=== PATIENT | female | born 1965 | race Caucasian/White ===

== ENCOUNTER → 2016-05-19 | Outpatient (CLI) | payer BC ==
[~2016-05-19] MED LIST: CHOL100027 PO; SPIR100T PO
--- NOTE | 2016-05-19 16:27 | MAMMOGRAPHY REPORT ---
BILATERAL DIGITAL SCREENING MAMMOGRAM TOMOSYNTHESIS WITH CAD: 05/19/2016 CLINICAL HISTORY: Routine screening. Patient has no complaints. TECHNIQUE: Breast tomosynthesis in addition to standard 2D mammography was performed. Current study was also evaluated with a Computer Aided Detection (CAD) system. COMPARISON: Comparison is made to exams dated: 10/09/2013 mammogram, 04/19/2012 mammogram, and 2010 mammogram - [facility]. BREAST COMPOSITION: The tissue of both breasts is heterogeneously dense, which may obscure small ma sses. FINDINGS: There is a newly visualized round partially circumscribed and partially obscured 7 mm mas s seen within the left lateral breast at approximately 3:00, best seen on the tomosynthesis images, for which ultrasound and possible additional spot compression tomosynthesis views are recommended fo r further evaluation. The remainder of both breasts are stable compared to prior exams, without suspicious masses, calcifi cations, or areas of architectural distortion noted. IMPRESSION: ACR BI-RADS CATEGORY 0: INCOMPLETE EVALUATION: NEED ADDITIONAL IMAGING EVALUATION Left 3:00 breast mass, for which additional imaging evaluation is recommended. The patient will be called to schedule an appointment. Approximately 10% of breast cancers are not detected with mammography. A negative mammographic repor t should not delay biopsy if a clinically suggestive mass is present. Lydia Oakes M.D. ah/:05/19/2016 16:15:05 Box Estimator: Jo-Ann LEACHR, M, [facility] letter sent: Addl Imaging 0 BI-RADS Code: ACR BI-RADS Category 0: Incomplete Evaluation: Need Additional Imaging Evaluation
== END | disposition home or self-care (01) ==
LOC: C.MAMM 12:20
PROVIDERS: ATTEND Obstetrics & Gynecology
DX: Z12.31 Encounter for screening mammogram for malignant neoplasm of breast (principal); N63 Unspecified lump in breast

== ENCOUNTER → 2016-06-02 | Outpatient (CLI) | payer BC ==
--- NOTE | 2016-06-02 12:52 | MAMMOGRAPHY REPORT ---
ULTRASOUND OF LEFT BREAST: 06/02/2016 CLINICAL HISTORY: Callback from screening mammogram for newly visualized mass in the left breast at 3:00 on the recent screening mammogram. COMPARISON: Comparison is made to exams dated: 05/19/2016 mammogram, 10/09/2013 mammogram, 04/19/2012 mammogram, and 07/07/2010 mammogram - [facility]. TECHNIQUE: Real-time targeted ultrasound of the left breast was performed. FINDINGS: Real-time, high resolution targeted ultrasound was performed of the left 3 to 4:00 breast, in the re gion of the circumscribed seen on the recent screening mammogram. In the left breast at 4:00, appro ximately 3 cm from the nipple, there is an oval circumscribed isoechoic mass which measures 6 x 4 x 5 mm. This corresponds with the newly visualized mammographic mass. Although this has benign featu res on the imaging, given that it is newly visualized, it is indeterminate and ultrasound-guided cor e needle biopsy is recommended for further evaluation. This likely represents a fibroadenoma. IMPRESSION: ACR BI-RADS CATEGORY 4A: LOW SUSPICION FOR MALIGNANCY - FOLLOW-UP RECOMMENDED Circumscribed isoechoic 6 mm mass in the left breast at 4:00 on ultrasound, which corresponds with t he newly visualized mammographic mass. The mass is indeterminate and ultrasound-guided core needle biopsy is recommended for further evaluation. This likely represents a fibroadenoma. A phone call was made to the physician's office to confirm faxed results were received. The patient was verbally notified of the results. She tentatively scheduled the biopsy before leaving the depa rtment. Lydia Oakes M.D. ah/:06/02/2016 08:23:37 Corrections Lieutenant: Jada Hall RT(Jason)([place]), [facility] letter sent: Abnormal 4/5 BI-RADS Code: ACR BI-RADS Category 4A: Low Suspicion For Malignancy
== END | disposition home or self-care (01) ==
LOC: C.MAMM 08:03
PROVIDERS: ATTEND Obstetrics & Gynecology
DX: N63 Unspecified lump in breast (principal)

== ENCOUNTER → 2016-06-08 | Outpatient (CLI) | payer BC ==
--- NOTE | 2016-06-08 10:19 | Discharge Instructions ---
Discharge Instructions Procedure Procedure Date: Jun 08, 2016. Reason for visit: Left Mass. Discharge Discharge Date: Jun 08, 2016. Discharge Diagnosis: post left breast ultrasound guided core biopsy Instructions Activity Recommendations: Additional Limitations (see below) Return to School/Work: no limitations Recommended Home Diet: No Limitations Provider Instructions: ACTIVITY RECOMMENDATIONS: * No lifting, pushing, pulling or exercising the affected side for three days. RETURN TO SCHOOL/WORK: * You may return to work/school after the procedure, but do not perform any strenuous activities for 24 to 48 hours. MEDICATIONS: * Tylenol (two 325 mg) every four to six hours if needed for mild pain (if not allergic to Tylenol). DIET: * Resume previous diet. SPECIAL CARE INSTRUCTIONS: * Keep biopsy site dry for 24 hours. May shower after 24 hours, but do not soak (bathe) incision. * May remove Tegaderm (plastic patch) tomorrow AFTER showering. * Leave the steri-strips on for one week. Allow the steri-strips to fall off by themselves. If not off after one week, you may remove them. You may place a Bandaid crosswise over the strips, if desired. * Apply ice 10 minutes on and 10 minutes off as needed. * Wear a bra at bedtime to sleep more comfortably for 2-3 days. * Your referring physician should have the results after approximately 5 to 7 business days. * Call for unusual bleeding, fever, drainage, etc or if you have any questions call [phone] during normal business hours or after hours call Dr Evans, . FOLLOW UP VISIT: Follow-up with Referring Physician as scheduled. Allergies Coded Allergies: Meperidine (Verified Allergy, Intermediate, "CHEST TIGHTNESS" "MUSCLE STIFFNESS" POSSIBLE ALLERGY, 10/31/11) Sulfa Drugs (Verified Allergy, Mild, HIVES, 10/31/11) RXN TO BACTRIM = HIVES Dust Mite Extract (Verified Allergy, Unknown, ?, 10/31/11) Molds and Smuts (Verified Allergy, Unknown, ?, 10/31/11) Oxycodone (Verified Adverse Reaction, Intermediate, NAUSEA/VOMITING, ) Aspirin (Verified Adverse Reaction, Mild, NAUSEA/VOMITING, 03/08/10) Suresh Durham Recommendations: Call your doctor if: * Temperature above 101 degrees * Pain not relieved by pain medicine ordered * There is increased drainage or redness from any incision * You have any unanswered questions or concerns. Your Doctors Instructions noted above were prepared by provider Cynthia Evans. Patient Signature Section: Patient Instructions Signature Page Valeria Ceron Patient (or Guardian) Signature/Date: I have read and understand the instructions given to me by my caregivers. Caregiver/RN/Doctor Signature/Date: The above-named patient and/or guardian has received patient instructions on this date. + Original Patient Signature Page (only) stays with chart. Please make copy for patient.
--- NOTE | 2016-06-08 12:36 | MAMMOGRAPHY REPORT ---
ULTRASOUND GUIDED BIOPSY LEFT BREAST: 06/08/2016 CLINICAL HISTORY: Newly visualized mass in the 4:00 left breast. Patient presents for ultrasound-gu ided core biopsy. COMPARISON: Comparison is made to exams dated: 06/02/2016 ultrasound, 05/19/2016 mammogram, 10/09/2013 mammogram - [facility], 09/12/2006, 07/07/2010 mammogram, and 04/19/[address] [facility]. PATIENT CONSENT: The procedure, risks and benefits were discussed with the patient and informed writ ten consent was obtained. Specific risks to this procedure include: bleeding, infection, puncture of adjacent structure, nontarget biopsy, sampling error, metal allergy and medication reaction. PROCEDURE DESCRIPTION: A time out was performed and the left breast was agreed as the site of biopsy . The skin was prepped and draped in the usual sterile fashion. The solid mass in the 4:[address] was chosen as the target for biopsy. Subcutaneous and intraparenchymal 1% buffered lidocaine with and without epinephrine was administered as local anesthesia. A skin incision was made. Through th e incision, 3 samples were taken with a 14 gauge Achieve biopsy device. A metallic marker was placed at the biopsy site. Hemostasis was achieved after manual compression. The patient tolerated the pro cedure well and there was no immediate complication. The samples were sent to the pathology departm ent in an appropriately labeled container. Postprocedure left CC and ML 2-D digital and tomosynthesis images were obtained. There is a new rib bon-shaped metallic biopsy marker outlining with the mass identified on the 05/19/2016 screening [facility]. No significant postbiopsy hematoma is seen. COMPARISON: Comparison is made to exams dated: 06/02/2016 ultrasound, 05/19/2016 mammogram, 10/09/2013 mammogram - [facility], 09/12/2006, 07/07/2010 mammogram, and 04/19/2012 mammogram - [facility]. An ultrasound guided biopsy using real-time ultrasound was performed for the abnormality located in the left breast at 4 o'clock posterior depth. The skin was prepped in the usual manner. A biopsy n eedle was placed adjacent to the abnormality under ultrasound guidance. Once the needle was documen melissa to be in the correct location, a specimen was obtained using an automated biopsy gun. The speci men was sent to the laboratory for pathological analysis. IMPRESSION: ULTRASOUND GUIDED BIOPSY Status post ultrasound-guided core biopsy of an indeterminate solid mass in the 4:00 left breast, wi th biopsy marker placed at the site. The patient will receive notification of the biopsy results from her referring physician. Cynthia Evans M.D. ay/:06/08/2016 10:31:05 Motion Picture Set Up Worker: Jada Segura, [facility]
--- NOTE | 2016-06-08 12:36 | MAMMOGRAPHY REPORT ---
UNILATERAL LEFT DIGITAL DIAGNOSTIC MAMMOGRAM TOMOSYNTHESIS: 06/08/2016 CLINICAL HISTORY: Status post ultrasound-guided core biopsy of a solid mass in the 4:00 left breast. Please refer to the report from left breast ultrasound guided core biopsy performed at the same time for full detail. IMPRESSION: POST PROCEDURE IMAGING FOR MARKER PLACEMENT Please refer to the report from left breast ultrasound guided core biopsy performed at the same time for full detail. Approximately 10% of breast cancers are not detected with mammography. A negative mammographic repor t should not delay biopsy if a clinically suggestive mass is present. Cynthia Evans M.D. ay/:06/08/2016 10:22:25 Manager Quality Compliance: Jada Segura, [facility] BI-RADS Code: Post Procedure Imaging For Marker Placement
== END | disposition home or self-care (01) ==
LOC: C.MAMM 09:17
PROVIDERS: ATTEND Obstetrics & Gynecology
DX: D24.2 Benign neoplasm of left breast (principal)

== ENCOUNTER → 2016-10-24 | Outpatient (CLI) | payer BC | END | disposition home or self-care (01) | LOC: C.LAB1850 15:50 | PROVIDERS: ATTEND Physician Assistant | DX: R63.5 Abnormal weight gain (principal) ==

== ENCOUNTER → 2016-10-24 | Outpatient (CLI) | payer BC | END | disposition home or self-care (01) | LOC: C.PAPS 17:58 | PROVIDERS: ATTEND Physician Assistant | DX: Z01.419 Encounter for gynecological examination (general) (routine) without abnormal findings (principal) ==

== ENCOUNTER 2017-04-06 14:37 | Emergency (ER) | payer BC ==
[~2017-04-06] VITALS: Ht 157.5 cm; Wt 60.0 kg
[2017-04-06 14:49] VITALS: TEMP 36.3; Ht 157.5 cm; Wt 60.0 kg
--- NOTE | 2017-04-06 16:17 | DIAGNOSTIC IMAGING REPORT ---
RIGHT LOWER EXTREMITY VENOUS DOPPLER CLINICAL HISTORY: Right calf pain. COMPARISON STUDY: No previous studies for comparison. TECHNIQUE: Sonography of the deep venous system of the right lower extremity was performed. Compression and augmentation were evaluated. FINDINGS: The right common femoral, superficial femoral and popliteal veins were compressible. Augmentation was normal. Flow was shown within the deep calf vessels. IMPRESSION: No evidence of deep venous thrombus within the right lower extremity. Electronically signed by: Darshan Nicolas M.D. 04/06/2017 4:16 PM Dictated Date/Time: 04/06/2017 4:15 PM
[2017-04-06 16:53] VITALS: BP 104/66; PULSE 81; O2SAT 96
--- NOTE | 2017-04-06 17:06 | EMERGENCY ROOM VISIT NOTE ---
History First contact with patient: 15:02 Chief Complaint: LEG PAIN,LEG INJURY Stated Complaint: PAIN IN CALF, POST SURGERY - BLOOD CLOT? History of Present Illness The patient is a 51 year old female who presents to the Emergency Room with complaints of right calf pain. The patient reports undergoing a right total hip revision on 04/03/17 at the [facility] in [place]. The patient has a prior history of primary total hip arthroplasty 5 years ago, and underwent a revision surgery that resulted in significant postoperative complications, including femur fracture. The patient was discharged from the hospital 2 days ago. The patient is now starting to exhibit right calf cramping and leg pain since last evening. The patient is currently limited weightbearing using crutches. The patient does have a history of sciatica, but does not feel that this pain is similar to her prior sciatic pain. She is currently taking aspirin 162 mg daily. The patient denies any prior history of DVT. She is a nonsmoker. She rates her discomfort a 5 out of 10. Review of Systems 10 system review was performed and was negative except for pertinent positives and negatives as indicated in history of present illness Past Medical/Surgical History Medical Problems: (1) Bronchitis (2) Pneumonia Surgical Problems: (1) Hip Joint Replacement Status (2) Tubal Ligation Status (3) Tubal Ligation Status Family History FH: cancer FH: diabetes mellitus FH: heart disease FH: hypertension FH: seizures Social History Smoking Status: Never Smoker Alcohol Use: none Drug Use: none Marital Status: Housing Status: lives with family Occupation Status: employed Current/Historical Medications Scheduled Cholecalciferol (Vitamin D 1000 Unit), 1,000 INTER.UNIT PO DAILY Spironolactone (Aldactone), 100 MG PO BID Physical Exam Vital Signs Date Time Temp Pulse Resp B/P (MAP) Pulse Ox O2 Delivery O2 Flow Rate FiO2 04/06/17 16:53 81 18 104/66 96 Room Air 04/06/17 14:49 36.3 83 20 101/68 98 Room Air Physical Exam CONSTITUTIONAL: Healthy and well nourished. Alert and oriented X 3 with positive affect. Patient does not appear in any acute distress. HEENT: Normocephalic, atraumatic. Pupils equal, round and reactive. NECK: Full active range of motion without discomfort. RESPIRATORY: Clear to auscultation bilaterally with no wheezing, crackles, rhonchi or stridor. CARDIOVASCULAR: Regular rate and rhythm with no murmurs, rubs or gallops. MUSCULOSKELETAL: Examination of the right calf shows tenderness to palpation of the gastrocnemius. The tissue is soft. No popliteal masses. Pedal pulses are intact. No tenderness to palpation of the hamstrings or Achilles tendon. Further range of motion of the right hip was deferred because of her prior history and postoperative status. INTEGUMENTARY: No rash or other significant dermatologic conditions noted. NEUROLOGIC: No focal neurologic deficits noted. Right foot and toes are sensory intact. Medical Decision & Procedures ER Provider Diagnostic Interpretation: Venous ultrasound of the right lower extremity is negative for deep vein thrombosis. Radiologist report is as follows: RIGHT LOWER EXTREMITY VENOUS DOPPLER CLINICAL HISTORY: Right calf pain. COMPARISON STUDY: No previous studies for comparison. TECHNIQUE: Sonography of the deep venous system of the right lower extremity was performed. Compression and augmentation were evaluated. FINDINGS: The right common femoral, superficial femoral and popliteal veins were compressible. Augmentation was normal. Flow was shown within the deep calf vessels. IMPRESSION: No evidence of deep venous thrombus within the right lower extremity. ED Course Patient history and physical exam were performed. Nurse's notes were reviewed. Vital signs were reviewed and were also normal. The patient refused any analgesics. Venous ultrasound of the right lower extremity was normal, showing no evidence for deep vein thrombosis. The patient was encouraged to continue with her postoperative instructions per her orthopedic surgeon. She is welcome to return to the emergency department for any progressively worsening pain, swelling, redness of the leg or fever. The patient was happy with plan of care , and voiced understanding of all discharge instructions. Medical Decision Ultrasound does not show any evidence for deep vein thrombosis. Other likely etiologies include postoperative pain as well as acute sciatica. At this point I do not suspect postoperative infection. Medication Reconcilliation Current Medication List: was personally reviewed by pr Blood Pressure Screening Patient's blood pressure: Normal blood pressure Impression Primary Impression: Leg pain, right Additional Impression: Status post hip surgery Departure Information Referrals Ashok Le M.D. (PCP) Patient Instructions [facility] Problem Qualifiers
== END 2017-04-06 17:24 | disposition home or self-care (01) ==
LOC: C.EDB 14:38 → C.EDD 17:24
DX: M79.604 Pain in right leg (principal); Z83.3 Family history of diabetes mellitus; Z82.0 Family history of epilepsy and other diseases of the nervous system; Z82.49 Family history of ischemic heart disease and other diseases of the circulatory system

== ENCOUNTER → 2017-05-21 | Outpatient (CLI) | payer OTHER ==
--- NOTE | 2017-05-22 14:38 | MAMMOGRAPHY REPORT ---
BILATERAL DIGITAL SCREENING MAMMOGRAM TOMOSYNTHESIS WITH CAD: 05/21/2017 CLINICAL HISTORY: Routine screening. TECHNIQUE: Breast tomosynthesis in addition to standard 2D mammography was performed. Current study was also evaluated with a Computer Aided Detection (CAD) system. COMPARISON: Comparison is made to exams dated: 05/19/2016 mammogram, 10/09/2013 mammogram, 04/19/2012 mammogram, 07/07/2010 mammogram - [facility], 09/12/2006, and 06/08/2016 mammogram - [facility]. BREAST COMPOSITION: There are scattered areas of fibroglandular density in both breasts. FINDINGS: There is a stable ribbon-shaped biopsy marker clip in the 3:00 to 4:00 left breast. A stab le loose grouping of microcalcifications in the posterior left breast along the posterior nipple line on the MLO view. No new suspicious mass, architectural distortion or cluster of microcalcifications is seen. IMPRESSION: ACR BI-RADS CATEGORY 1: NEGATIVE There is no mammographic evidence of malignancy. A 1 year screening mammogram is recommended. The pa tient will receive written notification of the results. Approximately 10% of breast cancers are not detected with mammography. A negative mammographic report should not delay biopsy if a clinically suggestive mass is present. Cynthia Evans M.D. ay/:05/21/2017 16:01:40 Workforce Development Specialist: Kishore CASTRO)([place]), [facility] letter sent: Normal 1/2 BI-RADS Code: ACR BI-RADS Category 1: Negative
== END | disposition home or self-care (01) ==
LOC: C.MAMM 12:06
PROVIDERS: ATTEND Obstetrics & Gynecology
DX: Z12.31 Encounter for screening mammogram for malignant neoplasm of breast (principal)

== ENCOUNTER 2022-04-21 19:55 | Observation (INO) ==
[2022-04-21] MEDS ORDERED: ONDANSETRON INJ 2 MG/ML 2 ML VIAL IV STA ×2 (20:15→23:52)
[2022-04-21] MEDS ORDERED: ACETAMINOPHEN 1,000 MG/100 ML VIAL IV STA (20:15)
[2022-04-21] MEDS ORDERED: SODIUM CHLORIDE 0.9% 1000ML 1,000 ML IV ONE (20:15)
[2022-04-21] MEDS ORDERED: MoRPHine SULFATE 2 MG/ML CARP IV STA ×2 (20:15→21:40)
--- NOTE | 2022-04-21 20:19 | Emergency Department Note ---
History of Present Illness General Chief complaint: Back Injury/Pain Stated complaint: SEVERE BACK PAIN,LINGERY BACK ISSUE Time Seen by Provider: 04/21/22 20:02 Source: patient Mode of arrival: ambulatory Limitations: no limitations History of Present Illness Provider complaint: Back pain Maximum Pain Intensity: 8 This is a 56-year-old female presents emergency department due to worsening back pain. Patient states she first began having some back pain several weeks ago after clearing snow off of her car. She states since that time pain has been dull but present most days, often times waxing and waning. She denies any strenuous activity or heavy lifting in the interim. Patient does work with a physical therapist yet as she has been rehabbing from hip surgery last year. Patient also still teaches figure skating. She states today while cleaning at home pain became more severe and despite taking meloxicam and applying a Salonpas pain patch at home pain became so severe that she felt as though she could not move and she began to get nauseated. No prior history of significant back problems. No change in urine or stools. She denies any accompanying paresthesias down the right lower extremity or saddle anesthesia. Patient states pain seems just to the right of midline in her low back, and at times she feels pain spreading around into her flank. No history of pyelonephritis or ureterolithiasis. She denies any fevers or chills. Patient states she did fall yesterday while figure skating but had not noticed increase back pain immediately after that. Home Medications Medication Instructions Recorded Confirmed Type meloxicam 15 mg tablet 15 mg PO DAILY PRN Pain 05/19/21 04/21/22 History ascorbic acid (vitamin C) 500 mg 500 mg PO DAILY 04/21/22 04/21/22 History chewable tablet (Vitamin C) multivitamin with minerals-folic 1 tab PO DAILY 04/21/22 04/21/22 History acid 200 mcg chewable tablet (Adult Multivitamin Gummies) cyclobenzaprine 5 mg tablet 5 mg PO Q8H PRN muscle spasm #14 04/22/22 Rx tabs Allergies Allergy/AdvReac Type Severity Reaction Status Date / Time meperidine Allergy Intermediate "CHEST Verified 04/21/22 21:57 TIGHTNESS" "MUSCLE STIFFNESS" POSSIBLE ALLERGY Sulfa (Sulfonamide Allergy Intermediate HIVES Verified 04/21/22 21:57 Antibiotics) mold Allergy Unknown Unknown Verified 04/21/22 21:57 oxycodone AdvReac Intermediate NAUSEA/VOMI Verified 04/21/22 21:57 TING Dust Mite Extract Allergy Unknown Unknown Uncoded 04/21/22 21:57 Past Med/Surg History Medical History (Updated 04/22/22 @ 02:51 by Faizan Muir MD) Bronchitis Pneumonia Post-menopausal bleeding Postmenopausal HRT (hormone replacement therapy) Surgical History (Updated 04/22/22 @ 02:51 by Faizan Muir MD) H/O section x3 H/O tubal ligation with last c/s S/P bone graft right femur, titanium jared S/P hip arthroscopy right S/P hip replacement right Status post left hip replacement Family History Other Coronary heart disease Diabetes Dyslipidemia Hypertension Osteoporosis Denies family history of Ovarian cancer Breast cancer Colorectal cancer Social History Smoking Status: Never smoker Second Hand Exposure: No; Hx Alcohol Use: No Hx Substance Use: No Preferred Language: Senegalese Communication Ability: Effective 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 Beliefs That Will Affect Care: None Current Living Situation: Spouse Feels Safe at Home: No Is there a partner from a previous relationship who is making you feel unsafe now?: No Assistive Devices: None Review of Systems A total of 10 systems reviewed and were otherwise negative All systems reviewed & are unremarkable except as noted in HPI & below Physical Exam Vital Signs Vital Signs - 24 hr 04/21/22 19:57 04/21/22 22:00 04/22/22 00:00 Temperature 36.3 C L Temperature Source Temporal Artery Scan Pulse Rate 71 Pulse Rate [Finger] 65 63 Pulse Rhythm [Finger] Regular Regular Pulse Strength [Finger] Normal Normal Respiratory Rate 20 20 20 Respiratory Effort / Characteristics Non-Labored Spontaneous Non-Labored Non-Labored Respiratory Depth Normal Normal Normal Respiratory Pattern Regular Regular Blood Pressure 136/70 Blood Pressure [Right Arm] 138/76 132/72 Blood Pressure Mean 92 Blood Pressure Mean [Right Arm] 96 92 Blood Pressure Position [Right Arm] Lying Lying Pulse Oximetry 96 97 100 Oxygen Delivery Method Room Air Room Air Room Air Oxygen Flow Rate Sepsis Recent Fever Within 48 Hours No Sepsis New/Unexplained Change in Mental Status N/A Sepsis Action Taken by Nursing No Action Required 04/22/22 02:00 Temperature Temperature Source Pulse Rate Pulse Rate [Finger] 62 Pulse Rhythm [Finger] Regular Pulse Strength [Finger] Normal Respiratory Rate 15 Respiratory Effort / Characteristics Non-Labored Respiratory Depth Normal Respiratory Pattern Regular Blood Pressure Blood Pressure [Right Arm] 136/72 Blood Pressure Mean Blood Pressure Mean [Right Arm] 93 Blood Pressure Position [Right Arm] Lying Pulse Oximetry 99 Oxygen Delivery Method Nasal Cannula Oxygen Flow Rate 1 Sepsis Recent Fever Within 48 Hours Sepsis New/Unexplained Change in Mental Status Sepsis Action Taken by Nursing GENERAL: alert, uncomfortable appearing, tearful, well nourished, mild distress, non-toxic EYE EXAM: normal conjunctiva, PERRL and EOM's grossly intact LUNGS: Clear to auscultation. Normal chest wall mechanics, no w/r/r HEART: no murmurs, S1 normal and S2 normal ABDOMEN: abdomen soft, non-tender, normo-active bowel sounds, no masses, no rebound or guarding. BACK: Back is symmetrical on inspection and there is no deformity, no midline tenderness, no CVA tenderness. Pain with palpation along right lumbar paraspinal musculature. SKIN: no rashes and no bruising UPPER EXTREMITIES: upper extremities are grossly normal. FROM, nml pulses b/l. LOWER EXTREMITIES: No pitting edema. FROM, nml pulses b/l. No pain with palpation over the hips bilaterally. NEURO EXAM: Normal sensorium, cranial nerves II-XII grossly intact, normal speech, no gross weakness of arms, no gross weakness of legs. Gross sensation intact. Course Course 2240: Pt updated on results. She states she still having significant pain. 2338: Patient states pain improved, down to 5/10. 0040: Pt now with worsening pain, nausea. Feels prior IV meds wore off and oral medications haven't helped. States pain 9/10 again. States with spasm, pain wraps around in the right flank and anterior right hip. Administered Medications Discontinued Medications Ascorbic Acid (Ascorbic Acid 500 Mg Tab) 500 mg PO DAILY ROHIT Stop: 05/22/22 08:59 Last Admin: 04/22/22 10:34 Dose: Not Given Documented By: [id number] Diazepam (Diazepam 5 Mg/Ml Inj 10ml Vial) 2 mg IV NOW STA Stop: 04/21/22 20:16 Last Admin: 04/21/22 21:00 Dose: 2 mg Documented By: SANDEEP Diazepam (Diazepam 5 Mg/Ml Inj 10ml Vial) 2 mg IV NOW STA Stop: 04/21/22 22:42 Last Admin: 04/21/22 22:53 Dose: 2 mg Documented By: SANDEEP Diazepam (Diazepam 2 Mg Tablet) 2 mg PO NOW ONE Stop: 04/21/22 23:42 Last Admin: 04/21/22 23:50 Dose: 2 mg Documented By: SANDEEP Hydromorphone HCl (Hydromorphone Inj 0.5 Mg/0.5 Ml Syr) 0.5 mg IV NOW STA Stop: 04/21/22 22:42 Last Admin: 04/21/22 22:54 Dose: 0.5 mg Documented By: SANDEEP Hydromorphone HCl (Hydromorphone Inj 0.5 Mg/0.5 Ml Syr) 0.5 mg IV NOW STA Stop: 04/22/22 00:42 Last Admin: 04/22/22 01:01 Dose: 0.5 mg Documented By: SANDEEP Acetaminophen (Ofirmev) 1,000 mg in 100 mls @ 400 mls/hr IV NOW STA Stop: 04/21/22 20:29 Last Infusion: 04/21/22 21:16 Dose: 0 mls/hr Documented By: Admin: 04/21/22 20:53 Dose: 400 mls/hr Documented By: SANDEEP Sodium Chloride (Nss 1000ml) 1,000 mls @ 999 mls/hr IV .Q1H1M ONE Stop: 04/21/22 21:15 Last Infusion: 04/21/22 22:00 Dose: 0 mls/hr Documented By: Admin: 04/21/22 20:52 Dose: 999 mls/hr Documented By: SANDEEP Sodium Chloride (Nss 1000ml) 1,000 mls @ 125 mls/hr IV .Q8H ROHIT Stop: 05/22/22 00:44 Last Admin: 04/22/22 01:01 Dose: 125 mls/hr Documented By: SANDEEP Prochlorperazine (Compazine) 1 mls @ 1 mls/min IV ONE ONE Stop: 04/22/22 01:14 Last Admin: 04/22/22 01:20 Dose: 1 mls/min Documented By: SANDEEP Promethazine HCl (Phenergan) 12.5 mg in 50.5 mls @ 202 mls/hr IV NOW STA Stop: 04/22/22 02:32 Last Infusion: 04/22/22 03:50 Dose: 0 mls/hr Documented By: Admin: 04/22/22 02:39 Dose: 202 mls/hr Documented By: JOAO Ioversol (Optiray 350 100ml) 88 ml IV ONCE ONE Stop: 04/22/22 01:56 Last Admin: 04/22/22 01:55 Dose: 88 ml Documented By: MIGUEL Ketorolac Tromethamine (Ketorolac Tromethamine 15 Mg/Ml Vial) 10 mg IV NOW ONE Stop: 04/21/22 21:41 Last Admin: 04/21/22 21:47 Dose: 10 mg Documented By: SANDEEP Lidocaine (Lidocaine 5% 1 Patch) 1 patch TD QAM ROHIT Stop: 05/22/22 08:59 Last Admin: 04/22/22 10:36 Dose: Not Given Documented By: [id number] Morphine Sulfate (Morphine Sulfate 2 Mg/Ml Carp) 2 mg IV NOW STA Stop: 04/21/22 20:16 Last Admin: 04/21/22 20:53 Dose: 2 mg Documented By: SANDEEP Morphine Sulfate (Morphine Sulfate 2 Mg/Ml Carp) 2 mg IV NOW STA Stop: 04/21/22 21:41 Last Admin: 04/21/22 21:47 Dose: 2 mg Documented By: SANDEEP Multivitamins/Minerals (Cerovite Adv Formula Tab) 1 tab PO DAILY ROHIT Stop: 05/22/22 08:59 Last Admin: 04/22/22 10:34 Dose: Not Given Documented By: [id number] Ondansetron HCl (Ondansetron Inj 2 Mg/Ml 2 Ml Vial) 4 mg IV NOW STA Stop: 04/21/22 20:16 Last Admin: 04/21/22 20:53 Dose: 4 mg Documented By: SANDEEP Ondansetron HCl (Ondansetron Inj 2 Mg/Ml 2 Ml Vial) 4 mg IV NOW STA Stop: 04/21/22 23:53 Last Admin: 04/21/22 23:54 Dose: 4 mg Documented By: SANDEEP Ondansetron HCl (Ondansetron Inj 2 Mg/Ml 2 Ml Vial) 4 mg IV Q6H PRN PRN Reason: Nausea Stop: 05/22/22 04:54 Last Admin: 04/22/22 14:43 Dose: 4 mg Documented By: [id number] Oxycodone/Acetaminophen (Oxycodone/Acetaminophen 5mg/325mg Tab) 1 tab PO NOW STA Stop: 04/21/22 23:42 Last Admin: 04/21/22 23:50 Dose: 1 tab Documented By: SANDEEP Tramadol HCl (Tramadol Hcl 50 Mg Tablet) 50 mg PO Q4H PRN PRN Reason: Moderate Pain Stop: 05/22/22 04:54 Last Admin: 04/22/22 14:43 Dose: 50 mg Documented By: [id number] Medical Decision Making Differential Diagnosis Differential diagnoses includes but is not limited to lumbar radiculopathy, muscle strain, facture, cauda equina, mass, and disc herniation. Medical Records Attestation: I reviewed the patient's medical records. Home Medications Current Medication List: was personally reviewed by me Laboratory Data Attestation: I reviewed the patient's lab results. Result diagrams: 04/22/22 00:57 04/22/22 00:57 Lab Results 04/21/22 04/21/22 04/22/22 Range/Units 20:40 20:48 00:46 WBC (4.8-10.8) K/ul RBC (3.93-5.22) M/uL Hgb (12.0-16.0) g/dl POC Hgb 14.6 (12.0-16.0) g/dl Hct (34.1-44.9) % POC Hct 43 (37-47) % MCV (80.0-100.0) fL MCH (25.0-34.0) pg MCHC (32.0-36.0) g/dL RDW Std Deviation (36.4-46.3) fL RDW Coeff of Yissel (11.5-14.5) % Plt Count (130-400) K/uL MPV (9.4-12.3) fL Immature Gran % (Auto) % Neut % (Auto) % Lymph % (Auto) % [place] % (Auto) % Eos % (Auto) % Baso % (Auto) % Neut # (Auto) (1.4-6.5) K/uL Lymph # (Auto) (1.2-3.4) K/uL [place] # (Auto) (0.24-0.82) K/uL Eos # (Auto) (0-0.50) K/uL Baso # (Auto) (0-0.2) K/uL Immature Gran # (Auto) (0.00-0.02) K/uL POC Sodium 138 (135-144) mmol/L Sodium (136-145) mmol/L POC Potassium 3.8 (3.3-5.0) mmol/L Potassium (3.5-5.1) mmol/L POC Chloride 104 (101-112) mmol/L Chloride (98-107) mmol/L Carbon Dioxide (21-32) mmol/L POC Total CO2 26 (24-31) mmol/L Anion Gap (3-11) POC Anion Gap 13.0 L (16-25) mmol/L POC BUN 17 (7-18) mg/dl BUN (6-23) mg/dl Creatinine (0.6-1.2) mg/dl POC Creatinine 0.8 (0.6-1.3) mg/dl Est Cr Clr Drug Dosing Est GFR ( Amer) ml/min Est GFR (Non-Af Amer) ml/min BUN/Creatinine Ratio (10-20) Glucose (70-99(Fasting)) mg/dl POC Glucose (other) 97 (70-99) mg/dl Calcium (8.5-10.1) mg/dl POC Ioniz Calcium Raina 1.25 (1.12-1.32) mmol/l Total Bilirubin (0.2-1.0) mg/dl AST (13-39) U/L ALT (7-52) U/L Alkaline Phosphatase (34-104) U/L Total Protein (6.0-8.3) gm/dl Albumin (3.4-5.0) gm/dl Globulin (2.5-4.0) gm/dl Albumin/Globulin Ratio (0.9-2) Urine Color Yellow Urine Appearance Clear (Clear) Urine pH 6.5 (4.5-7.5) Ur Specific [place] 1.010 (1.000-1.030) Urine Protein Negative (Negative) Urine Glucose (UA) Negative (Negative) Urine Ketones Negative (Negative) Urine Blood Negative (Negative) Urine Nitrite Negative (Negative) Urine Bilirubin Negative (Negative) Urine Urobilinogen Negative (Negative) Ur Leukocyte Esterase 1+ H (Negative) Urine WBC (Auto) 5-10 H (0-5) /hpf Urine RBC (Auto) 0-4 (0-4) /hpf U Hyaline Cast (Auto) 1-5 (0-5) /lpf U Epithel Cells (Auto) >30 H (0-5) /lpf Urine Bacteria (Auto) Negative (Negative) SARS-CoV-2 (PCR) NEGATIVE (Negative) Influenza Type A (PCR) Negative (Neg) Influenza Type B (PCR) Negative (Neg) RSV (RT-PCR) Negative (Neg) 04/22/22 04/22/22 Range/Units 00:57 00:57 WBC 6.06 (4.8-10.8) K/ul RBC 3.79 L (3.93-5.22) M/uL Hgb 11.8 L (12.0-16.0) g/dl POC Hgb (12.0-16.0) g/dl Hct 34.2 (34.1-44.9) % POC Hct (37-47) % MCV 90.2 (80.0-100.0) fL MCH 31.1 (25.0-34.0) pg MCHC 34.5 (32.0-36.0) g/dL RDW Std Deviation 40.6 (36.4-46.3) fL RDW Coeff of Yissel 12.5 (11.5-14.5) % Plt Count 198 (130-400) K/uL MPV 9.5 (9.4-12.3) fL Immature Gran % (Auto) 0.2 % Neut % (Auto) 63.7 % Lymph % (Auto) 22.9 % [place] % (Auto) 10.4 % Eos % (Auto) 2.1 % Baso % (Auto) 0.7 % Neut # (Auto) 3.86 (1.4-6.5) K/uL Lymph # (Auto) 1.39 (1.2-3.4) K/uL [place] # (Auto) 0.63 (0.24-0.82) K/uL Eos # (Auto) 0.13 (0-0.50) K/uL Baso # (Auto) 0.04 (0-0.2) K/uL Immature Gran # (Auto) 0.01 (0.00-0.02) K/uL POC Sodium (135-144) mmol/L Sodium 138 (136-145) mmol/L POC Potassium (3.3-5.0) mmol/L Potassium 4.0 (3.5-5.1) mmol/L POC Chloride (101-112) mmol/L Chloride 108 H (98-107) mmol/L Carbon Dioxide 24 (21-32) mmol/L POC Total CO2 (24-31) mmol/L Anion Gap 6 (3-11) POC Anion Gap (16-25) mmol/L POC BUN (7-18) mg/dl BUN 16 (6-23) mg/dl Creatinine 0.63 (0.6-1.2) mg/dl POC Creatinine (0.6-1.3) mg/dl Est Cr Clr Drug Dosing Not Reportable Est GFR ( Amer) 116.2 ml/min Est GFR (Non-Af Amer) 100.3 ml/min BUN/Creatinine Ratio 25.4 H (10-20) Glucose 109 H (70-99(Fasting)) mg/dl POC Glucose (other) (70-99) mg/dl Calcium 8.4 L (8.5-10.1) mg/dl POC Ioniz Calcium Raina (1.12-1.32) mmol/l Total Bilirubin 0.4 (0.2-1.0) mg/dl AST 29 (13-39) U/L ALT 30 (7-52) U/L Alkaline Phosphatase 67 (34-104) U/L Total Protein 6.6 (6.0-8.3) gm/dl Albumin 3.7 (3.4-5.0) gm/dl Globulin 2.9 (2.5-4.0) gm/dl Albumin/Globulin Ratio 1.3 (0.9-2) Urine Color Urine Appearance (Clear) Urine pH (4.5-7.5) Ur Specific [place] (1.000-1.030) Urine Protein (Negative) Urine Glucose (UA) (Negative) Urine Ketones (Negative) Urine Blood (Negative) Urine Nitrite (Negative) Urine Bilirubin (Negative) Urine Urobilinogen (Negative) Ur Leukocyte Esterase (Negative) Urine WBC (Auto) (0-5) /hpf Urine RBC (Auto) (0-4) /hpf U Hyaline Cast (Auto) (0-5) /lpf U Epithel Cells (Auto) (0-5) /lpf Urine Bacteria (Auto) (Negative) SARS-CoV-2 (PCR) (Negative) Influenza Type A (PCR) (Neg) Influenza Type B (PCR) (Neg) RSV (RT-PCR) (Neg) Imaging Data Radiologist's Impression: Lumbar Spine X-Ray 04/21/22 21:00 XR lumbar spine 2-3V CLINICAL HISTORY: acute back pain TECHNIQUE: 3 views of the lumbar spine were obtained. Comparison: None available at the time of this dictation. FINDINGS: There is no evidence of an acute fracture. Vertebral body heights and disc spaces are well maintained. The alignment is normal. No soft tissue abnormality is seen. Bilateral total hip arthroplasties. IMPRESSION: No acute fracture or subluxation. ACT 112: Negative or not required by law. Electronically signed by: Demetri Mota M.D. 04/22/2022 7:04 AM Abdomen/Pelvis CT 04/22/22 00:40 CT OF THE ABDOMEN AND PELVIS WITH CONTRAST CLINICAL HISTORY: Right flank pain. COMPARISON STUDY: Pelvic ultrasound October 11, 2020. TECHNIQUE: Following IV administration of 88 mL of Optiray, axial images of the abdomen and pelvis were obtained from the lung bases to the proximal femurs. Images were reviewed in the axial, sagittal, and coronal planes. IV contrast was administered without complication. Automated exposure control was utilized for the study. A dose lowering technique was utilized adhering to the principles of ALARA. FINDINGS: Subpleural opacities within the lower lungs atelectasis. No pneumatosis, free air or portal venous gas is present. The liver, spleen, adrenal glands, kidneys and pancreas are unremarkable with the exception of a subcentimeter left renal lesion which likely reflects a cyst. There is no hydronephrosis. There is no biliary or pancreatic ductal dilatation. No urinary calculi are identified although distal ureters are obscured by streak artifact from bilateral hip arthroplasties. Bladder is distended. Caliber and wall thick ness of small and large bowel are normal. The appendix is normal. There is no ascites or lymphadenopathy. No acute fractures within visualized skeletal structures are present. IMPRESSION: 1. No acute process within the abdomen or pelvis. 2. Normal appendix. No bowel obstruction. No bowel wall thickening. 3. No hydronephrosis. No urinary calculi identified. ACT 112: Negative or not required by law. Electronically signed by: Darshan Nicolas M.D. 04/22/2022 8:[address] 04/22/22 00:[address] CLINICAL HISTORY: Back pain. COMPARISON STUDY: Lumbar spine radiographs April 21, 2022. TECHNIQUE: Axial images of the lumbar spine were obtained. Sagittal and coronal reconstructions were viewed. Automated exposure control was utilized for the study. A dose lowering technique was utilized adhering to the principles of ALARA. FINDINGS: Alignment of the lumbar spine is anatomic. Vertebral body heights are maintained. There is no fracture. No osseous lesion is identified. Disc spaces are preserved. Facet joints are intact. Central canal and neural foramen are suboptimally assessed by CT but there is no evidence for significant central canal stenosis. No evidence for severe stenosis neural foraminal stenosis. IMPRESSION: Unremarkable lumbar spine CT. No fractures. ACT 112: Negative or not required by law. Electronically signed by: Darshan Nicolas M.D. 04/22/2022 8:28 AM MDM Narrative An order was placed for continuous cardiac monitoring. The monitor shows a rate of _60__ with _normal sinus__ rhythm. This is a 56-year-old female who presents emergency department due to concern for worsening right low back pain today. She has had some mild dull pain over the last 3 weeks. No prior history of back problems. Initial x-rays reassuring patient given several doses of medication to help with pain and muscle spasm. UA collected and reassuring, [id number] BMP also reassuring. After multiple doses of medications for pain, inflammation, and muscle relaxers we attempted to convert the patient over to oral medication in order to go home. Patient's pain worsened, she vomited, and we returned to IV medication. At this point time I discussed with her the need for additional evaluation and additional inpatient care due to the need for ongoing IV narcotics. CBC and CMP added, patient sent for CT. Case discussed with hospitalist for additional evaluation and treatment. Patient has no contributory family history. Patient was first seen and observation began at 2001 and was necessary in order to evaluate pain and provide multiple doses of IV pain medication. Upon re-evaluation, 5.5 hours of observation revealed that the patient should be admitted. Discharge time at 0145. Impression & Plan Back pain, Sprain of back Discharge Plan Visit Data Chief Complaint: Back Injury/Pain Stated Complaint: SEVERE BACK PAIN,LINGERY BACK ISSUE ED Provider: Sharon Potts Discharge Problem: Back pain, Sprain of back Patient Disposition: Admitted As Inpatient Condition: Good Discharge Instructions Interventions: ED Discharge Assessment Last Done: 04/22/22 04:55
[2022-04-21 21:02] LABS: Appearance Urine Clear (Clear); Bacteria Urine Automated Negative (Negative); Bilirubin Urine Negative (Negative); Blood Urine Negative (Negative); Color Urine Yellow; Epithelial Cell Urine Auto >30 /lpf (0-5); Glucose Urine UA Negative (Negative); Ketones Urine Negative (Negative); Leukocyte Esterase Urine 1+ (Negative); Nitrite Urine Negative (Negative); Protein Urine Negative (Negative); RBC Urine Automated 0-4 /hpf (0-4); Urobilinogen Urine Negative (Negative); pH Urine 6.5 (4.5-7.5)
[2022-04-21 21:16] LABS: iSTAT Creatinine 0.8 mg/dl (0.6-1.3); iSTAT Hemoglobin 14.6 g/dl (12.0-16.0); iSTAT Ionized Calcium 1.25 mmol/l (1.12-1.32); iSTAT Potassium 3.8 mmol/L (3.3-5.0)
[2022-04-21] MEDS ORDERED: KETOROLAC TROMETHAMINE 15 MG/ML VIAL IV ONE (21:40)
[2022-04-21] MEDS ORDERED: HYDROmorphone INJ 0.5 MG/0.5 ML SYR IV STA (22:41)
[2022-04-21] MEDS ORDERED: oxyCODONE/ACETAMINOPHEN 5mg/325mg TAB PO STA (23:41)
[2022-04-21] MEDS ORDERED: diazePAM 2 MG TABLET PO ONE (23:41)
[2022-04-22] MEDS ORDERED: HYDROmorphone INJ 0.5 MG/0.5 ML SYR IV STA (00:41)
[2022-04-22] MEDS ORDERED: SODIUM CHLORIDE 0.9% 1000ML 1,000 ML IV SCH (00:45)
[2022-04-22] MEDS ORDERED: PROCHLORPERAZINE 1 ML IV ONE (01:13)
[2022-04-22 01:36] LABS: Basophils # (auto) 0.04 K/uL (0-0.2); Basophils % (auto) 0.7 %; Eosinophils # (auto) 0.13 K/uL (0-0.50); Eosinophils % (auto) 2.1 %; Hematocrit (blood only) 34.2 % (34.1-44.9); Hemoglobin 11.8 g/dl (12.0-16.0); Immature Granulocytes # (auto) 0.01 K/uL (0.00-0.02); Immature Granulocytes % (auto) 0.2 %; Lymphocytes # (auto) 1.39 K/uL (1.2-3.4); Lymphocytes % (auto) 22.9 %; Mean Corpuscular Hemoglobin 31.1 pg (25.0-34.0); Mean Corpuscular Hgb Conc 34.5 g/dL (32.0-36.0); Mean Corpuscular Volume 90.2 fL (80.0-100.0); Mean Platelet Volume 9.5 fL (9.4-12.3); Monocytes # (auto) 0.63 K/uL (0.24-0.82); Monocytes % (auto) 10.4 %; Neutrophils # (auto) 3.86 K/uL (1.4-6.5); Neutrophils % (auto) 63.7 %; Platelet Count 198 K/uL (130-400); RDW Coefficient of Variation 12.5 % (11.5-14.5); RDW Standard Deviation 40.6 fL (36.4-46.3); Red Blood Count 3.79 M/uL (3.93-5.22); White Blood Count 6.06 K/ul (4.8-10.8)
[2022-04-22] MEDS ORDERED: OPTIRAY 350 100ml IV ONE (01:55)
[2022-04-22 02:01] LABS: Alanine Aminotransferase 30 U/L (7-52); Albumin Globulin Ratio 1.3 (0.9-2); Albumin Level 3.7 gm/dl (3.4-5.0); Alkaline Phosphatase 67 U/L (34-104); Anion Gap 6 (3-11); Aspartate Aminotransferase 29 U/L (13-39); BUN Creatinine Ratio 25.4 (10-20); Bilirubin,Total 0.4 mg/dl (0.2-1.0); Blood Urea Nitrogen 16 mg/dl (6-23); Calcium 8.4 mg/dl (8.5-10.1); Carbon Dioxide 24 mmol/L (21-32); Chloride 108 mmol/L (98-107); Est GFR (African American) 116.2 ml/min; Est GFR (Non-African American) 100.3 ml/min; Globulin 2.9 gm/dl (2.5-4.0); Glucose 109 mg/dl (70-99(Fasting)); Sodium 138 mmol/L (136-145); Total Protein 6.6 gm/dl (6.0-8.3)
[2022-04-22 02:14] LABS: Influenza A virus by PCR Negative (Neg); Influenza B virus by PCR Negative (Neg); RSV by PCR Negative (Neg); SARS CoV2 RNA(COVID-19) Ceph NEGATIVE (Negative)
[2022-04-22] MEDS ORDERED: PROMETHAZINE 12.5 MG/50.5 ML BAG IV STA (02:18)
--- NOTE | 2022-04-22 02:31 | History & Physical Report ---
Date of Service April 22, 2022 Assessment & Plan (1) Intractable low back pain: (2) Sprain of back: (3) Femur fracture: (4) Reactive airway disease: (5) Urge incontinence of urine: (6) S/P bone graft: (7) S/P hip replacement: (8) Status post left hip replacement: Plan Intractable low back pain- X-ray lumbar spine without acute findings CT scan of the lumbar spine was normal CT scan of abdomen and pelvis was normal Patient received multiple dosages of morphine, Dilaudid, diazepam and Percocet from the ED, without significant improvement Patient remitted for pain control Acetaminophen 650 mg p.o. every 6 hours as needed for mild pain or fever Tramadol 50 mg every 4 hours as needed for moderate pain Toradol 15 mg IV every 6 hours as needed for severe pain Lidoderm patch K pad If pain is persistent overnight, will consult orthopedic surgery in the morning History of Present Illness Chief Complaint: The patient presents to the emergency department with complaint of worsening left sided back pain initially began several weeks ago while clearing snow off of her car, and worsened significantly over the past 24 hours while doing the side to side motion while moving around. Primary Care Provider: Ashok Le MD The patient is a 56-year-old female with a past medical history including femur fracture, alopecia, urinary urge incontinence, reactive airway disease, status post left total hip arthroplasty, status post right total hip arthroplasty/status post bone graft right femur with titanium jared and C-sections x3. The patient has been going to physical therapy for on and off for back pain, which had been improving after worsening few weeks ago, then worsened again over the past 24 hours. Allergies Allergy/AdvReac Type Severity Reaction Status Date / Time meperidine Allergy Intermediate "CHEST Verified 04/21/22 21:57 TIGHTNESS" "MUSCLE STIFFNESS" POSSIBLE ALLERGY Sulfa (Sulfonamide Allergy Intermediate HIVES Verified 04/21/22 21:57 Antibiotics) mold Allergy Unknown Unknown Verified 04/21/22 21:57 oxycodone AdvReac Intermediate NAUSEA/VOMI Verified 04/21/22 21:57 TING Dust Mite Extract Allergy Unknown Unknown Uncoded 04/21/22 21:57 Home Medications Medication Instructions Recorded Confirmed Type meloxicam 15 mg tablet 15 mg PO DAILY PRN Pain 05/19/21 04/21/22 History ascorbic acid (vitamin C) 500 mg 500 mg PO DAILY 04/21/22 04/21/22 History chewable tablet (Vitamin C) multivitamin with minerals-folic 1 tab PO DAILY 04/21/22 04/21/22 History acid 200 mcg chewable tablet (Adult Multivitamin Gummies) Past Med/Surg History Medical History (Updated 04/22/22 @ 02:51 by Faizan Muir MD) Bronchitis Pneumonia Post-menopausal bleeding Postmenopausal HRT (hormone replacement therapy) Surgical History (Updated 04/22/22 @ 02:51 by Faizan Muir MD) H/O section x3 H/O tubal ligation with last c/s S/P bone graft right femur, titanium jared S/P hip arthroscopy right S/P hip replacement right Status post left hip replacement Family History Other Coronary heart disease Diabetes Dyslipidemia Hypertension Osteoporosis Denies family history of Ovarian cancer Breast cancer Colorectal cancer Social History Smoking Status: Never smoker Hx Alcohol Use: No Hx Substance Use: No Preferred Language: Bengali Feels Safe at Home: Yes Review of Systems Review of Systems: The patient denies chest pain, palpitations, shortness of breath, dyspnea on exertion, cough, lower extremity swelling, sore throat, fevers, chills, sweats, weight change, fatigue, nausea, vomiting, d iarrhea , constipation, abdominal pain, pelvic pain, blood in urine or stool, dysuria, urinary frequency or urgency, lightheadedness, dizziness, headache, memory loss, loss of consciousness, rash, abnormal bruising or bleeding, imbalance, focal or generalized weakness, numbness or tingling in arms or legs, neck pain, or night sweats. The review of systems is otherwise negative other than for that already noted above, and at least 10 systems have been reviewed. Physical Exam Physical Exam: The patient is awake, alert and oriented 3, well developed and well nourished, normocephalic and atraumatic, lying in bed and in no acute distress. HEENT--PERRL, EOMI, mucous membranes and oropharynx normal. Neck--supple. No JVD. No bruits. Thyroid normal, trachea midline, no adenopathy. Heart--normal S1 and S2. No murmurs, rubs or gallops. Lungs--clear bilaterally, no respiratory distress, no accessory muscle use. Abdomen--normal bowel sounds and soft. Nontender. Nondistended, no hernias or masses, no organomegaly. Extremities--no cyanosis or clubbing. No edema. There are good distal pulses b/l. Dermatologic--normal skin turgor, normal color, no abnormal lymph nodes, no rash. Neurologic--cranial nerves II through XII grossly intact. Rheumatologic--exam limited due to low back pain Psychiatric--normal affect. Results & Data Results & Data ([facility]) Vital Signs (Past 12 Hours) Vital Signs Temp Pulse Pulse Resp BP BP Pulse Ox 04/22/22 02:00 62 15 136/72 99 04/22/22 00:00 63 20 132/72 100 04/21/22 22:00 65 20 138/76 97 04/21/22 19:57 36.3 C L 71 20 136/70 96 O2 Del Method O2 Flow Rate 04/22/22 02:00 Nasal Cannula 1 04/22/22 00:00 Room Air 04/21/22 22:00 Room Air 04/21/22 19:57 Room Air Laboratory Results Laboratory Results WBC 6.06 K/ul (4.8-10.8) 04/22/22 00:57 RBC 3.79 M/uL (3.93-5.22) L 04/22/22 00:57 Hgb 11.8 g/dl (12.0-16.0) L 04/22/22 00:57 POC Hgb 14.6 g/dl (12.0-16.0) 04/21/22 20:48 Hct 34.2 % (34.1-44.9) 04/22/22 00:57 POC Hct 43 % (37-47) 04/21/22 20:48 MCV 90.2 fL (80.0-100.0) 04/22/22 00:57 MCH 31.1 pg (25.0-34.0) 04/22/22 00:57 MCHC 34.5 g/dL (32.0-36.0) 04/22/22 00:57 RDW Std Deviation 40.6 fL (36.4-46.3) 04/22/22 00:57 RDW Coeff of Yissel 12.5 % (11.5-14.5) 04/22/22 00:57 Plt Count 198 K/uL (130-400) 04/22/22 00:57 MPV 9.5 fL (9.4-12.3) 04/22/22 00:57 Immature Gran % (Auto) 0.2 % 04/22/22 00:57 Neut % (Auto) 63.7 % 04/22/22 00:57 Lymph % (Auto) 22.9 % 04/22/22 00:57 Haakon % (Auto) 10.4 % 04/22/22 00:57 Eos % (Auto) 2.1 % 04/22/22 00:57 Baso % (Auto) 0.7 % 04/22/22 00:57 Neut # (Auto) 3.86 K/uL (1.4-6.5) 04/22/22 00:57 Lymph # (Auto) 1.39 K/uL (1.2-3.4) 04/22/22 00:57 Haakon # (Auto) 0.63 K/uL (0.24-0.82) 04/22/22 00:57 Eos # (Auto) 0.13 K/uL (0-0.50) 04/22/22 00:57 Baso # (Auto) 0.04 K/uL (0-0.2) 04/22/22 00:57 Immature Gran # (Auto) 0.01 K/uL (0.00-0.02) 04/22/22 00:57 POC Sodium 138 mmol/L (135-144) 04/21/22 20:48 Sodium 138 mmol/L (136-145) 04/22/22 00:57 POC Potassium 3.8 mmol/L (3.3-5.0) 04/21/22 20:48 Potassium 4.0 mmol/L (3.5-5.1) 04/22/22 00:57 POC Chloride 104 mmol/L (101-112) 04/21/22 20:48 Chloride 108 mmol/L (98-107) H 04/22/22 00:57 Carbon Dioxide 24 mmol/L (21-32) 04/22/22 00:57 POC Total CO2 26 mmol/L (24-31) 04/21/22 20:48 Anion Gap 6 (3-11) 04/22/22 00:57 POC Anion Gap 13.0 mmol/L (16-25) L 04/21/22 20:48 POC BUN 17 mg/dl (7-18) 04/21/22 20:48 BUN 16 mg/dl (6-23) 04/22/22 00:57 Creatinine 0.63 mg/dl (0.6-1.2) 04/22/22 00:57 POC Creatinine 0.8 mg/dl (0.6-1.3) 04/21/22 20:48 Est Cr Clr Drug Dosing Not Reportable 04/22/22 00:57 Est GFR ( Amer) 116.2 ml/min 04/22/22 00:57 Est GFR (Non-Af Amer) 100.3 ml/min 04/22/22 00:57 BUN/Creatinine Ratio 25.4 (10-20) H 04/22/22 00:57 Glucose 109 mg/dl (70-99(Fasting)) H 04/22/22 00:57 POC Glucose (other) 97 mg/dl (70-99) 04/21/22 20:48 Calcium 8.4 mg/dl (8.5-10.1) L 04/22/22 00:57 POC Ioniz Calcium Raina 1.25 mmol/l (1.12-1.32) 04/21/22 20:48 Total Bilirubin 0.4 mg/dl (0.2-1.0) 04/22/22 00:57 AST 29 U/L (13-39) 04/22/22 00:57 ALT 30 U/L (7-52) 04/22/22 00:57 Alkaline Phosphatase 67 U/L (34-104) 04/22/22 00:57 Total Protein 6.6 gm/dl (6.0-8.3) 04/22/22 00:57 Albumin 3.7 gm/dl (3.4-5.0) 04/22/22 00:57 Globulin 2.9 gm/dl (2.5-4.0) 04/22/22 00:57 Albumin/Globulin Ratio 1.3 (0.9-2) 04/22/22 00:57 Urine Color Yellow 04/21/22 20:40 Urine Appearance Clear (Clear) 04/21/22 20:40 Urine pH 6.5 (4.5-7.5) 04/21/22 20:40 Ur Specific [place] 1.010 (1.000-1.030) 04/21/22 20:40 Urine Protein Negative (Negative) 04/21/22 20:40 Urine Glucose (UA) Negative (Negative) 04/21/22 20:40 Urine Ketones Negative (Negative) 04/21/22 20:40 Urine Blood Negative (Negative) 04/21/22 20:40 Urine Nitrite Negative (Negative) 04/21/22 20:40 Urine Bilirubin Negative (Negative) 04/21/22 20:40 Urine Urobilinogen Negative (Negative) 04/21/22 20:40 Ur Leukocyte Esterase 1+ (Negative) H 04/21/22 20:40 Urine WBC (Auto) 5-10 /hpf (0-5) H 04/21/22 20:40 Urine RBC (Auto) 0-4 /hpf (0-4) 04/21/22 20:40 U Hyaline Cast (Auto) 1-5 /lpf (0-5) 04/21/22 20:40 U Epithel Cells (Auto) >30 /lpf (0-5) H 04/21/22 20:40 Urine Bacteria (Auto) Negative (Negative) 04/21/22 20:40 SARS-CoV-2 (PCR) NEGATIVE (Negative) 04/22/22 00:46 Influenza Type A (PCR) Negative (Neg) 04/22/22 00:46 Influenza Type B (PCR) Negative (Neg) 04/22/22 00:46 RSV (RT-PCR) Negative (Neg) 04/22/22 00:46 Code Status & VTE Plan Code Status Full code VTE Prophylaxis Plan VTE Prophylaxis will be ordered: Yes
--- NOTE | 2022-04-22 02:54 | Billing Data ---
Date of Service April 22, 2022 Coding Level of Care Code INT OBSERVATION CARE 70M LVL 3
[2022-04-22] MEDS ORDERED: traMADol HCL 50 MG TABLET PO PRN (04:55)
[2022-04-22] MEDS ORDERED: ONDANSETRON INJ 2 MG/ML 2 ML VIAL IV PRN (04:55)
[2022-04-22] MEDS ORDERED: ACETAMINOPHEN 325 MG TAB PO PRN (04:55)
[2022-04-22] MEDS ORDERED: KETOROLAC TROMETHAMINE 15 MG/ML VIAL IV PRN (04:55)
--- NOTE | 2022-04-22 07:06 | XRay Report ---
XR lumbar spine 2-3V CLINICAL HISTORY: acute back pain TECHNIQUE: 3 views of the lumbar spine were obtained. Comparison: None available at the time of this dictation. FINDINGS: There is no evidence of an acute fracture. Vertebral body heights and disc spaces are well maintained . The alignment is normal. No soft tissue abnormality is seen. Bilateral total hip arthroplasties. IMPRESSION: No acute fracture or subluxation. ACT 112: Negative or not required by law. Electronically signed by: Demetri Mota M.D. 04/22/2022 7:04 AM
--- NOTE | 2022-04-22 08:27 | CT Scan Report ---
CT OF THE ABDOMEN AND PELVIS WITH CONTRAST CLINICAL HISTORY: Right flank pain. COMPARISON STUDY: Pelvic ultrasound October 11, 2020. TECHNIQUE: Following IV administration of 88 mL of Optiray, axial images of the abdomen and pelvis we re obtained from the lung bases to the proximal femurs. Images were reviewed in the axial, sagittal, and coronal planes. IV contrast was administered without complication. Automated exposure control wa s utilized for the study. A dose lowering technique was utilized adhering to the principles of ALARA . FINDINGS: Subpleural opacities within the lower lungs atelectasis. No pneumatosis, free air or portal venous gas is present. The liver, spleen, adrenal glands, kidneys and pancreas are unremarkable with the exception of a subcentimeter left renal lesion which likely reflects a cyst. There is no hydrone phrosis. There is no biliary or pancreatic ductal dilatation. No urinary calculi are identified altho ugh distal ureters are obscured by streak artifact from bilateral hip arthroplasties. Bladder is dist ended. Caliber and wall thickness of small and large bowel are normal. The appendix is normal. There is no ascites or lymphadenopathy. No acute fractures within visualized skeletal structures are presen t. IMPRESSION: 1. No acute process within the abdomen or pelvis. 2. Normal appendix. No bowel obstruction. No bowel wall thickening. 3. No hydronephrosis. No urinary calculi identified. ACT 112: Negative or not required by law. Electronically signed by: Darshan Nicolas M.D. 04/22/2022 8:25 AM
--- NOTE | 2022-04-22 08:29 | CT Scan Report ---
LUMBAR SPINE CT CLINICAL HISTORY: Back pain. COMPARISON STUDY: Lumbar spine radiographs April 21, 2022. TECHNIQUE: Axial images of the lumbar spine were obtained. Sagittal and coronal reconstructions were viewed. Automated exposure control was utilized for the study. A dose lowering technique was utilize d adhering to the principles of ALARA. FINDINGS: Alignment of the lumbar spine is anatomic. Vertebral body heights are maintained. There is no fracture. No osseous lesion is identified. Disc spaces are preserved. Facet joints are intact. Jorge tral canal and neural foramen are suboptimally assessed by CT but there is no evidence for significan t central canal stenosis. No evidence for severe stenosis neural foraminal stenosis. IMPRESSION: Unremarkable lumbar spine CT. No fractures. ACT 112: Negative or not required by law. Electronically signed by: Darshan Nicolas M.D. 04/22/2022 8:28 AM
[2022-04-22] MEDS ORDERED: BACLOFEN 10 MG TAB PO PRN (08:57)
[2022-04-22] MEDS ORDERED: ASCORBIC ACID 500 MG TAB PO SCH (09:00)
[2022-04-22] MEDS ORDERED: CEROVITE ADV FORMULA TAB PO SCH (09:00)
[2022-04-22] MEDS ORDERED: LIDOCAINE 5% 1 PATCH TD SCH (09:00)
--- NOTE | 2022-04-22 12:10 | Hospitalist Progress Note ---
Date of Service April 22, 2022 Assessment & Plan Admission and Anticipated Discharge Date Admission Date: April 22, 2022 Subjective eval this morning, resting in bed, reporting NO pain currently, thirsty for drink-- provided low back pain on admit, but reports not spinal tenderness, but rather paraspinal tenderness. Previously was clearing snow off car and worsened over past 24 hours when twisting side to side while moving around. Issues w/ n/v w/ oxycodone but given something last night which worked -- meds including valium, dilaudid and phenergan (zofran was admit, but had worsening n/v after oxycodone and phenergan used). She reports she wants to go home today on oral medications and does not want to wake up here [place] morning. Results & Data Results & Data ([facility]) Vital Signs (Past 12 Hours) Vital Signs Temp Pulse Resp BP Pulse Ox O2 Del Method O2 Flow Rate 04/22/22 09:42 36.5 C 60 18 86/54 L 95 Room Air 04/22/22 08:00 Nasal Cannula 04/22/22 06:01 56 L 14 95/57 L 100 Room Air 04/22/22 04:00 65 16 100/57 L 100 04/22/22 02:00 62 15 136/72 99 Nasal Cannula 1 PG Care Time/CCT Total # of Minutes Spent Total Time Spent with Patient: Total time spent is greater than 50% in coordination of care (as documented) at patient's floor/unit and/or counseling patient: Coding
--- NOTE | 2022-04-22 14:00 | Discharge Summary ---
Date of Service April 22, 2022 Admission HPI Per Admitting Provider The patient is a 56-year-old female with a past medical history including femur fracture, alopecia, urinary urge incontinence, reactive airway disease, status post left total hip arthroplasty, status post right total hip arthroplasty/status post bone graft right femur with titanium jared and C-sections x3. The patient has been going to physical therapy for on and off for back pain, which had been improving after worsening few weeks ago, then worsened again over the past 24 hours. Admission Exam Per Admitting Provider The patient is awake, alert and oriented 3, well developed and well nourished, normocephalic and atraumatic, lying in bed and in no acute distress. HEENT--PERRL, EOMI, mucous membranes and oropharynx normal. Neck--supple. No JVD. No bruits. Thyroid normal, trachea midline, no adenopathy. Heart--normal S1 and S2. No murmurs, rubs or gallops. Lungs--clear bilaterally, no respiratory distress, no accessory muscle use. Abdomen--normal bowel sounds and soft. Nontender. Nondistended, no hernias or masses, no organomegaly. Extremities--no cyanosis or clubbing. No edema. There are good distal pulses b/l. Dermatologic--normal skin turgor, normal color, no abnormal lymph nodes, no rash. Neurologic--cranial nerves II through XII grossly intact. Rheumatologic--exam limited due to low back pain Psychiatric--normal affect. Principal Diagnosis Intractable Back Pain, Muscle Spasm Discharge Exam General: WD/WN female sitting in bed, resting, NAD HEENT: head normocephalic, atraumatic, mm slightly dry, trachea midline without deviation Resp: CTAB, no w/c/r, on room air CV: RRR, no m/r/g, no pitting edema/calf tenderness GI: +BS, soft/NT : no martinez MSK/Neuro: moves all extremities, no focal deficit, paraspinal muscle tenderness on the right, reproducible Skin: warm, dry Discharge Data Allergies Allergy/AdvReac Type Severity Reaction Status Date / Time meperidine Allergy Intermediate "CHEST Verified 04/21/22 21:57 TIGHTNESS" "MUSCLE STIFFNESS" POSSIBLE ALLERGY Sulfa (Sulfonamide Allergy Intermediate HIVES Verified 04/21/22 21:57 Antibiotics) mold Allergy Unknown Unknown Verified 04/21/22 21:57 oxycodone AdvReac Intermediate NAUSEA/VOMI Verified 04/21/22 21:57 TING Dust Mite Extract Allergy Unknown Unknown Uncoded 04/21/22 21:57 Consultations 04/22/22 01:12 ED Decision to Admit Stat 04/22/22 08:55 Consult Pain Management Routine Ordered Studies Lumbar Spine X-Ray 04/21/22 21:00 XR lumbar spine 2-3V CLINICAL HISTORY: acute back pain TECHNIQUE: 3 views of the lumbar spine were obtained. Comparison: None available at the time of this dictation. FINDINGS: There is no evidence of an acute fracture. Vertebral body heights and disc spaces are well maintained. The alignment is normal. No soft tissue abnormality is seen. Bilateral total hip arthroplasties. IMPRESSION: No acute fracture or subluxation. ACT 112: Negative or not required by law. Electronically signed by: Demetri Mota M.D. 04/22/2022 7:04 AM Abdomen/Pelvis CT 04/22/22 00:40 CT OF THE ABDOMEN AND PELVIS WITH CONTRAST CLINICAL HISTORY: Right flank pain. COMPARISON STUDY: Pelvic ultrasound October 11, 2020. TECHNIQUE: Following IV administration of 88 mL of Optiray, axial images of the abdomen and pelvis were obtained from the lung bases to the proximal femurs. Images were reviewed in the axial, sagittal, and coronal planes. IV contrast was administered without complication. Automated exposure control was utilized for the study. A dose lowering technique was utilized adhering to the principles of ALARA. FINDINGS: Subpleural opacities within the lower lungs atelectasis. No pneumatosis, free air or portal venous gas is present. The liver, spleen, adrenal glands, kidneys and pancreas are unremarkable with the exception of a subcentimeter left renal lesion which likely reflects a cyst. There is no hydronephrosis. There is no biliary or pancreatic ductal dilatation. No urinary calculi are identified although distal ureters are obscured by streak artifact from bilateral hip arthroplasties. Bladder is distended. Caliber and wall thickness of small and large bowel are normal. The appendix is normal. There is no ascites or lymphadenopathy. No acute fractures within visualized skeletal structures are present. IMPRESSION: 1. No acute process within the abdomen or pelvis. 2. Normal appendix. No bowel obstruction. No bowel wall thickening. 3. No hydronephrosis. No urinary calculi identified. ACT 112: Negative or not required by law. Electronically signed by: Darshan Nicolas M.D. 04/22/2022 8:[address] 04/22/22 00:[address] CLINICAL HISTORY: Back pain. COMPARISON STUDY: Lumbar spine radiographs April 21, 2022. TECHNIQUE: Axial images of the lumbar spine were obtained. Sagittal and coronal reconstructions were viewed. Automated exposure control was utilized for the study. A dose lowering technique was utilized adhering to the principles of ALARA. FINDINGS: Alignment of the lumbar spine is anatomic. Vertebral body heights are maintained. There is no fracture. No osseous lesion is identified. Disc spaces are preserved. Facet joints are intact. Central canal and neural foramen are suboptimally assessed by CT but there is no evidence for significant central c anal stenosis. No evidence for severe stenosis neural foraminal stenosis. IMPRESSION: Unremarkable lumbar spine CT. No fractures. ACT 112: Negative or not required by law. Electronically signed by: Darshan Nicolas M.D. 04/22/2022 8:28 AM Hospital Course (1) Intractable low back pain: Intractable low back pain, ongoing but occurred initially when clearing snow from her car, suspect MSK/sprain/strain --> Xray lumbar spine w/o acute finding CT lumbar spine/AP without abnormality Pain control ordered -- IV opiates/valium/phenergan, with ultimate control achieved Was going to monitor patient/see how she did but reported much improved and felt well enough to go home. She has been working with outpatient therapy since her hip surgery and can resume per discussion w/ PT prior to discharge Tenderness/tense paraspinal muscles on the right -- continue heat/ice, and rx for Flexeril at d/c (2) Sprain of back: (3) Femur fracture: (4) Reactive airway disease: (5) Urge incontinence of urine: (6) S/P bone graft: (7) S/P hip replacement: (8) Status post left hip replacement: Total Time Total Time Spent Total Time Spent (In Minutes): 45 Discharge Plan Discharge Items Patient Disposition: Home - Self-Care Reason For Visit: INTRACTABLE BACK PAIN Discharge Diagnosis: Intractable Back Pain, Muscle Spasm Condition on Discharge: Good Goals: You have been hospitalized for an acute medical problem. During your stay at [facility], we have made an effort to correct the problem that brought you to the hospital while keeping you as comfortable as possible. Medications were used to bring your condition under control and your discharge instructions will include directions for any medications you should take after leaving the hospital. Please make sure you see your Primary Care Provider as part of your follow up plan. Activity: As commented below Non-emergency contact: Primary Care Provider Call non-emergency contact if: you have any medication questions, your symptoms worsen and your pain is not controlled Follow-up/Referrals: Ashok eL MD [Primary Care Provider] - Diet: Regular Addtl Attending Provider Instructions: You have been hospitalized for intractable back pain. Imaging was negative, but you did have some paraspinal muscle tightness, and could have pulled a muscle the other week with snow removal. Decision to discharge on muscle relaxer Flexeril and you can take this as needed for pain control every [address] on these medications. You can continue therapy through your outpatient provider, and may want to consi ayush referral to pain management if you have any ongoing issues. Please follow up with your primary care in the next 7-10 days after discharge. Please return to the ER with any worsened/uncontrolled pain, fever, or for any other symptoms concerning for you. It has been a pleasure being a part of the medical team providing for you while you have been in the hospital. Take care! Pending Studies at Discharge: No Stand-Alone Forms: My [facility], Smoking Cessation Medications and DC Order Prescriptions: New cyclobenzaprine 5 mg tablet 5 mg PO Q8H PRN (Reason: muscle spasm) Qty: 14 0RF Continued meloxicam 15 mg tablet 15 mg PO DAILY PRN (Reason: Pain) ascorbic acid (vitamin C) [Vitamin C] 500 mg Tablet,Chewable 500 mg PO DAILY Adult Multivitamin Gummies 200 mcg Tablet,Chewable 1 tab PO DAILY Discharge Orders: Discharge Order (Routine); Ordered 04/22/22 Ordered By: Corie Morrison/Other Patient Handouts: Self-Care for Low Back Pain, Medicine for Pain Admission Data Admit Date/Time: 04/22/22 02:29 Attending Provider: Anahy Obregon Admit Provider: Faizan Muir Primary Care Provider: Ashok Le Other Providers: Faizan Muir Other Interventions: Discharge Summary Assessment (RN) Last Done: 04/22/22 13:01 Supervising Physician Co-Signing Physician Notes PA Supervision Note: I personally saw and examined the patient. I verified all sanders points and agree with PEYTON De La Garza with the following exceptions and/or additions: S-patient feeling better, pain is in the right thoracolumbar paraspinous muscles and worse with certain movements. Feels she is ready to go home. Is eating and drinking, no other concerns. No blood in the urine. No chest pains or shortness of breath. O- Vitals reviewed Gen: [AAOx3, NAD] HEENT: [anicteric sclerae, EOMI] CV: [RRR no mgr nl S1S2] Pulm: [CTAB no wcr] Abd: [+BS soft NT ND no masses or hernias] Ext: [no edema, 2+ DP pulses] Skin: [no rashes, warm/dry] Neuro: [full strength throughout, positive tenderness palpation over right thoracolumbar region, no masses] Labs and imaging reviewed A/W-11-vjmo-old female here with right-sided intractable back pain secondary to paraspinous muscle spasm. Improved with pain control, will discharge home on muscle relaxers, meloxicam as needed Follow-up with PCP No focal neurological deficits Coding Level of Care Code OBSERV/HOSP SAME DATE LVL 3 Diagnoses Intractable low back pain M54.59 Sprain of back Femur fracture S72.90XA Reactive airway disease J45.909 Urge incontinence of urine N39.41 S/P bone graft Z98.890 S/P hip replacement Z96.649 Status post left hip replacement Z96.642
== END 2022-04-22 16:55 | disposition home or self-care (01) ==
LOC: ED 19:55 → EDINP 19:55 → SUATTDRO 04-22 02:29 → 3E 04-22 04:55